=== PATIENT | male | born 1970 | race Caucasian/White ===

== ENCOUNTER → 2020-08-08 13:53 | Outpatient (CLI) | payer BC, SELFPAY ==
--- NOTE | ~2020-08-08 | US_ITS ---
EXAMINATION: US soft tissue head and neck DATE: 08/08/2020 14:21 INDICATION: Localized enlarged lymph nodes. TECHNIQUE: Multiple grayscale and Doppler ultrasound images of the neck submandibular region were obt ained. COMPARISON: None FINDINGS: There are normal submandibular lymph nodes in the patient's area of concern. IMPRESSION: 1. No abnormal neck mass or lymphadenopathy in the patient's area of concern. Reviewed, dictated and finalized at location A.
== END ==
PROVIDERS: PCP Family Medicine; Visit Provider Physician Assistant
DX: R59.0 Localized enlarged lymph nodes (principal)
CPT/HCPCS: 76536

== ENCOUNTER 2023-01-29 00:23 | Day surgery (SDC) | payer BC, SELFPAY ==
[2023-01-21 11:20] VITALS: BMI 27.8
--- NOTE | 2023-01-28 13:24 | PM.HPGS ---
History of Present Illness History of Present Illness Consent: Risks, benefits, and alternatives have been discussed and questions answered. Patient agrees to proceed with procedure. Chief complaint: neoplasm screening Narrative: Kerwin Chaves Jr. is a 53 year old male referred for colon cancer screening. Review of Systems Review of Systems: All systems reviewed & are unremarkable except as noted in HPI and below PMFSH Past Medical History Medical History Left hand pain Family History Family History Mother Hypertension Social History Social History Smoking packs per day: 1 Smoking cigarettes per day: 20.0 Years smoked: 10 Smoking pack-years: 10.00 Smoking status: Former smoker Tobacco type: cigarettes Second hand tobacco smoke exposure: No Smoking end date: 04/28/05 Alcohol intake: current Drinks per week: 10 Substance use: never Substance use type: does not use Living arrangements: with family Occupation/Education: occupation Gender identity (if verbalized by the patient): Male Spiritual care concerns: No Meds Home Medications and Allergies Home Medications Medication Instructions Recorded Confirmed Type fexofenadine 180 mg tablet 180 mg PO DAILY 01/21/23 01/21/23 History ibuprofen 400 mg tablet 400 mg PO Q6H PRN Pain 01/21/23 01/21/23 History Allergies Allergy/AdvReac Type Severity Reaction Status Date / Time No Known Allergies Allergy Verified 01/29/23 08:10 Exam Resp: Auscultation: clear to auscultation bilaterally Cardio: Rate: regular rate Rhythm: regular rhythm GI: GI Palp: Yes Soft to palpation and No Tenderness to palpation present (GI) Assessment and Plan Assessment and plan (1) Colon cancer screening: Code(s): Z12.11 - Encounter for screening for malignant neoplasm of colon Status: Acute Assessment and Plan: Colonoscopy with possible biopsy or polypectomy or cautery or injection of substances.
[2023-01-29 08:11] VITALS: BP 129/77; PULSE 71; RESP 20; TEMP 36.2; O2SAT 97
[2023-01-29] MEDS: LACTATED RINGERS 1,000 ML 150 ML IV CONT (08:21)
--- NOTE | 2023-01-29 08:59 | P.PNAN_ITS ---
Anes - Initial Pre Proc Eval Procedure: Operation Date: 01/29/23 09:30 Proposed Procedures p Screening Colonoscopy - Elias Rain MD Date/Time: 01/29/23 08:59 Surgeon: Elias Rain MD Pre Op Diagnosis: neoplasm screening Patient Data Age: 53 Gender: M Height: 1.83 m Weight: 94.5 kg Last Vital Signs Temp 97.2 F L 01/29/23 08:11 Pulse 71 01/29/23 08:11 Resp 20 01/29/23 08:11 BP 129/77 01/29/23 08:11 Pulse Ox 97 01/29/23 08:11 O2 Del Method Room Air 01/29/23 08:11 Allergies Allergy/AdvReac Type Severity Reaction Status Date / Time No Known Allergies Allergy Verified 01/29/23 08:10 Home Medications Medication Instructions Recorded Confirmed Type fexofenadine 180 mg tablet 180 mg PO DAILY 01/21/23 01/21/23 History ibuprofen 400 mg tablet 400 mg PO Q6H PRN Pain 01/21/23 01/21/23 History Patient hx anesthesia problems: none Family hx anesthesia problems: none Results Review: All pre-operative results and documents have been reviewed as part of the pre- operative evaluation. [facility] Past Medical History Medical History Left hand pain Family History Family History Mother Hypertension Social History Social History Smoking packs per day: 1 Smoking cigarettes per day: 20.0 Years smoked: 10 Smoking pack-years: 10.00 Smoking status: Former smoker Tobacco type: cigarettes Second hand tobacco smoke exposure: No Smoking end date: 04/28/05 Alcohol intake: current Drinks per week: 10 Substance use: never Substance use type: does not use Living arrangements: with family Occupation/Education: occupation Gender identity (if verbalized by the patient): Male Spiritual care concerns: No Anes - Eval Final PreProcedure Day of Procedure 01/29/23 08:59 Patient weight: normal Heart: regular rate and rhythm Lungs: clear to auscultation Airway: Mallampati scale class II Neurological: alert and oriented Last oral intake: >/= 8 hours ASA classification: II Emergent: no Anesthetic plan: proceed Anesthesia type and monitoring: general GIVS and standard monitoring Results Review: All pre-operative results and documents have been reviewed as part of the pre- operative evaluation. Informed Consent: The patient's anesthetic plan and its attendant risks and benefits were discussed with the patient/family/POA. Questions were solicited and answers provided to the satisfaction of the patient/family/POA.
[2023-01-29 09:34] VITALS: BP 112/73; PULSE 60; RESP 20; O2SAT 98
[2023-01-29 09:44] VITALS: BP 119/75; PULSE 60; RESP 20; O2SAT 100
[2023-01-29 09:54] VITALS: BP 118/78; PULSE 63; RESP 20; O2SAT 100
== END 2023-01-29 10:00 | disposition home or self-care (01) ==
PROVIDERS: PCP Family Medicine; Visit Provider Internal Medicine Gastroenterology
PROC: 0DJD8ZZ Inspection of Lower Intestinal Tract, Via Natural or Artificial Opening Endoscopic (ICD-10-PCS; CPT 45378; principal; 2023-01-29 09:30)
DX: Z12.11 Encounter for screening for malignant neoplasm of colon (principal); Z87.891 Personal history of nicotine dependence
CPT/HCPCS: 45378; J2704; J7120

== ENCOUNTER 2024-01-19 14:38 | Outpatient (CLI) | payer BC, SELFPAY ==
--- NOTE | ~2024-01-19 | XR_ITS ---
XR elbow LT min 3V Ordering provider: Patti Moreno PA-C History: . M25.522 - Pain in left elbow . Comparison: None. FINDINGS: BONES: No acute fracture or dislocation. JOINT SPACES: Normal. SOFT TISSUES: Normal. No definite joint effusion. IMPRESSION: No acute osseous abnormality left elbow. Reviewed, dictated and finalized at location A.
== END 2024-01-19 14:39 | disposition home or self-care (01) ==
LOC: MICIMG 14:39
PROVIDERS: PCP Family Medicine; Visit Provider Physician Assistant Medical
DX: M25.522 Pain in left elbow (principal)
CPT/HCPCS: 73080

== ENCOUNTER 2024-09-09 16:25 | Emergency (ER) | payer BC, SELFPAY ==
--- NOTE | ~2024-09-09 | CT_ITS ---
CTA brain carotid Ordering provider: Penelope Reynoso History: . new dysarthria, ataxia x1 day . Comparison: None. Technique: CT angiogram head and neck was performed following timed intravenous injection of contrast . Thin slice axial images and reformatted coronal images were obtained. Three dimensional reformatted images of the brain were also obtained using a [employer] workstation. Radiation reduction technique ut ilized.The dose-length product was 1929.74 mGy-cm. 100 mL Omnipaque 350 was given IV. FINDINGS: HEAD: --ANTERIOR AND MIDDLE CEREBRAL ARTERIES AND BRANCHES: Normal caliber and contour. --INTERNAL CAROTID ARTERIES: Mild atheromatous disease but no significant stenosis. No occlusion. --BASILAR ARTERY AND BRANCHES: Normal caliber and contour. No atheromatous disease. --POSTERIOR CEREBRAL ARTERIES: Normal caliber and contour --POSTERIOR COMMUNICATING ARTERIES: Not visualized which is probably related to congenital absence or small size. --ANEURYSM: None visualized. --BRAIN: Normal. --BONES AND SUPERFICIAL SOFT TISSUES: Normal. --PARANASAL SINUSES AND MASTOIDS: Normal. NECK: --RIGHT CERVICAL CAROTID SYSTEM: Normal caliber and contour. Percent stenosis per NASCET criteria is 0%. No carotid dissection. Otherwise, no significant atheromatous disease or stenosis of the cervica l carotid system. --LEFT CERVICAL CAROTID SYSTEM: Normal caliber and contour. Percent stenosis per NASCET criteria is 0%. No carotid dissection. Otherwise, no significant atheromatous disease or stenosis of the cervical carotid system. --VERTEBRAL ARTERIES: Normal caliber and contour. --VISUALIZED AORTIC ARCH AND BRANCHING VESSELS: Normal caliber and contour. No significant atheromato us disease. --SOFT TISSUES: Normal. --CERVICAL SPINE: Age appropriate degenerative changes. The jugular veins are not opacified with small caliber. IMPRESSION: 1. Normal CTA head and neck. Percent stenosis per NASCET criteria is 0%. Reviewed, dictated and finalized at location A.
[2024-09-09 16:28] VITALS: BP 124/81; PULSE 67; RESP 17; TEMP 36.6; O2SAT 99
--- OUTSIDE RECORDS SUMMARY | 2024-09-09 16:28 | XMS_ITS | Continuity of Care Document ---
Author Name [facility] Organization [facility] Care Team Providers Care Neurology Physician Assistant Name Role Phone [facility] Unavailable Unavailable Problems Combined list of problems from Department of Defense and Veterans Affairs facilities. It does not include entries that were removed or entered in error. Problem Status Onset Date Problem Type Date of Resolution Comments Source Tinnitus, bilateral Inactive 02/04/2022 Condition DoD ASSESSMENT, POST-DEPLOYMENT, DOCUMENTED ON [id number] Active 07/06/2018 Condition DoD Tinea pedis Inactive 06/14/2018 Condition DoD Low back pain Active 09/02/2016 Condition DoD Segmental and somatic dysfunction of pelvic region Active 09/02/2016 Condition DoD Segmental and somatic dysfunction of lumbar region Active 09/02/2016 Condition DoD Segmental and somatic dysfunction of thoracic region Active 09/02/2016 Condition DoD Segmental and somatic dysfunction of cervical region Active 09/02/2016 Condition DoD Myalgia Active 09/02/2016 Condition [facility] ASSESSMENT, PRE-DEPLOYMENT, DOCUMENTED ON SQ4523 Inactive 08/13/2016 Condition [facility] visit for: services physical Inactive 09/15/2009 Condition DoD ASTIGMATISM Active Condition DoD REFRACTIVE ERROR - HYPERMETROPIA Active Condition DoD Allergies, Adverse Reactions, Alerts Combined list of allergies from Department of Defense and Veterans Affairs facilities. It does not include entries that were removed or entered in error. Substance Category Reaction Severity Reaction type Status Date Reported Comments Source No Known Allergies Drug allergy (disorder) active 09/17/2007 Jan Chauhan [facility] Immunizations Combined list of available immunizations from the Department of Defense and Veterans Affairs facilities. Immunization Series Date Given Administered By Site Reaction Lot Number CVX Code Drug Hvac Technician Residential Status Comments Source typhoid Vi capsular polysaccharid e vac 2021 [id number] sanofi pasteur [facility] ed typhoid Vi capsular polysacch aride vac 07/01/21 Given Ambulat ory Pharmac y anthrax vaccine 2021 [id number] 24 [employer] [facility] ed anthrax vaccine 07/01/21 Given Ambulat ory Pharmac y influenza, injectable, quadrivalent- pf 2020 [id number] 150 sanofi pasteur complet ed influenza , injectabl e, quadrival ent-pf 04/01/21 Given Ambulat ory Pharmac y influenza, injectable, quadrivalent- pf 2020 [id number] 150 sanofi pasteur complet ed influenza , injectabl e, quadrival ent-pf 03/03/21 Given Ambulat ory Pharmac y COVID Vaccine Moderna 2020 [id number] complet ed COVID Vaccine Moderna 08/16/20 Given Ambulat ory Pharmac y COVID Vaccine Moderna 2020 [id number] 207 complet ed COVID Vaccine Moderna 07/19/20 Given Ambulat ory Pharmac y influenza virus vaccine, unspecified 2019 [id number] 88 sanofi pasteur complet ed influenza virus vaccine, unspecifi ed 01/18/20 Given Ambulat ory Pharmac y influenza, injectable, quadrivalent- pf 2018 [id number] 150 Se[employer] complet ed influenza , injectabl e, quadrival ent-pf 02/28/19 Given Ambulat ory Pharmac y anthrax vaccine 2018 [id number] 24 [employer] complet ed anthrax vaccine 07/06/18 Given Ambulat ory Pharmac y typhoid Vi capsular polysaccharid e vac 2018 [id number] 101 sanofi pasteur complet ed typhoid Vi capsular polysacch aride vac 07/06/18 Given Ambulat ory Pharmac y influenza, injectable, quadrivalent 2017 [id number] 158 [employer] complet ed influenza , injectabl e, quadrival ent 02/28/18 Given Ambulat ory Pharmac y anthrax vaccine 2017 [id number] 24 [employer] complet ed anthrax vaccine 11/29/17 Given Ambulat ory Pharmac y poliovirus vaccine, inactivated 2017 [id number] 10 sanofi pasteur complet ed polioviru s vaccine, inactivat ed 11/29/17 Given Ambulat ory Pharmac y Influenza, inj, MDCK, quadrivalent- pf 2016 [id number] 171 [employer] complet ed Influenza , inj, MDCK, quadrival ent-pf 02/02/17 Given Ambulat ory Pharmac y typhoid Vi capsular polysaccharid e vac 2016 [id number] 101 sanofi pasteur complet ed typhoid Vi capsular polysacch aride vac 06/01/16 Given Ambulat ory Pharmac y typhoid Vi capsular polysaccharid e vaccine 8 2016 M1287 101 Sanofi Pasteur ([facility]) complet ed typhoid Vi capsular polysacch aride vaccine DoD anthrax vaccine 2015 [id number] 24 [employer] complet ed anthrax vaccine 03/02/16 Given Ambulat ory Pharmac y anthrax vaccine 3 2015 [id number] 24 [employer] Jennifer (MIP) complet ed anthrax vaccine DoD influenza, injectable, quadrivalent- pf 2015 [id number] 150 GlaxoSmithKli ne complet ed influenza , injectabl e, quadrival ent-pf 01/27/16 Given Ambulat ory Pharmac y Influenza, injectable, quadrivalent, preservative free 19 2015 [id number] 150 SmithKline (SKB) complet ed Influenza , injectabl e, quadrival ent, preservat drake free DoD influenza virus vaccine, unspecified 2014 [id number] 88 complet ed influenza virus vaccine, unspecifi ed 03/31/15 Given Ambulat ory Pharmac y influenza virus vaccine, unspecified formulation 1 2014 88 Transcribed (TRS) complet ed influenza virus vaccine, unspecifi ed formulati on DoD hepatitis B adult vaccine 2014 [id number] 43 GlaxoSmithKli ne complet ed hepatitis B adult vaccine 07/01/14 Given Ambulat ory Pharmac y anthrax vaccine 2014 [id number] 24 [employer] complet ed anthrax vaccine 07/01/14 Given Ambulat ory Pharmac y anthrax vaccine 2 2014 [id number] 24 [employer] Ipava (MIP) complet ed anthrax vaccine DoD hepatitis B vaccine, adult dosage 3 2014 [id number] 43 SmithKline (SKB) complet ed hepatitis B vaccine, adult dosage DoD anthrax vaccine 2014 [id number] 24 [employer] complet ed anthrax vaccine 05/06/14 Given Ambulat ory Pharmac y anthrax vaccine 1 2014 [id number] 24 [employer] Ipava (MIP) complet ed anthrax vaccine DoD typhoid Vi capsular polysaccharid e vac 2013 [id number] 101 sanofi pasteur complet ed typhoid Vi capsular polysacch aride vac 04/02/14 Given Ambulat ory Pharmac y typhoid Vi capsular polysaccharid e vaccine 7 2013 [id number] 101 Sanofi Pasteur (PMC) complet ed typhoid Vi capsular polysacch aride vaccine DoD influenza, injectable, quadrivalent 2013 [id number] [employer] comple t ed influenza , injectabl e, quadrival ent 02/26/14 Given Ambulat ory Pharmac y influenza, injectable, quadrivalent, contains preservative 17 2013 [id number] (IDB) complet ed influenza , injectabl e, quadrival ent, contains preservat drake DoD varicella virus vaccine 2013 TRANSCR IBED 21 complet ed varicella virus vaccine 02/24/14 Given Ambulat ory Pharmac y varicella virus vaccine 1 2013 21 Transcribed (TRS) complet ed varicella virus vaccine DoD hepatitis B adult vaccine 2013 [id number] 43 Merck & Company Inc complet ed hepatitis B adult vaccine 01/02/14 Given Ambulat ory Pharmac y hepatitis B vaccine, adult dosage 2 2013 [id number] 43 Merck (MSD) complet ed hepatitis B vaccine, adult dosage DoD hepatitis B adult vaccine 2013 [id number] 43 Merck & Company Inc complet ed hepatitis B adult vaccine 10/02/13 Given Ambulat ory Pharmac y hepatitis B vaccine, adult dosage 1 2013 [id number] 43 Merck (MSD) complet ed hepatitis B vaccine, adult dosage DoD measles/mumps /rubella virus vaccine 2013 [id number] 03 Merck & Company Inc complet ed measles/m umps/rube lla virus vaccine 06/26/13 Given Ambulat ory Pharmac y measles, mumps and rubella virus vaccine 2 2013 [id number] 03 Merck (MSD) complet ed measles, mumps and rubella virus vaccine DoD influenza, live, intranasal,qu adrivalent 2012 [id number] 149 Medimmune Inc comple t ed influenza , live, intranasa l,quadriv alent 02/27/13 Given Ambulat ory Pharmac y influenza, live, intranasal, quadrivalent 1 2012 [id number] 149 [employer] Inc. (MED) complet ed influenza , live, intranasa l, quadrival ent DoD influenza virus vaccine, live 2011 [id number] 111 Medimmune Inc comple t ed influenza virus vaccine, live 02/15/12 Given Ambulat ory Pharmac y influenza virus vaccine, live, attenuated, for intranasal use 1 2011 [id number] 111 MedImmune, Inc. (MED) complet ed influenza virus vaccine, live, attenuate d, for intranasa l use DoD tetanus, diphtheria, acellular pertu is 2011 [id number] 115 sanofi pasteur complet ed tetanus, diphtheri a, acellular pertussis 11/30/11 Given Ambulat ory Pharmac y tetanus toxoid, reduced diphtheria toxoid, and acellular pertu is vaccine, adsorbed 1 2011 [id number] 115 Sanofi Pasteur ([facility]) complet ed tetanus toxoid, reduced diphtheri a toxoid, and acellular pertussis vaccine, adsorbed DoD influenza virus vaccine, live 2010 [id number] [facility] influenza virus vaccine, live 01/27/11 Given Ambulat ory Pharmac y influenza virus vaccine, live, attenuated, for intranasal use 14 2010 [id number] 111 [employer] Inc. (MED) complet ed influenza virus vaccine, live, attenuate d, for intranasa l use DoD influenza virus vaccine, live 2009 [id number] 111 Medimmune Inc comple t ed influenza virus vaccine, live 03/03/10 Given Ambulat ory Pharmac y influenza virus vaccine, live, attenuated, for intranasal use 1 2009 [id number] 111 [facility] ed influenza virus vaccine, live, attenuate d, for intranasa l use [facility] tuberculin purified protein derivative 2009 [id number] 96 sanofi pasteur complet ed tuberculi n purified protein derivativ e 09/29/09 Given Ambulat ory Pharmac y Novel influenza-H1N 1-09,pf,injec table 2009 [id number] 126 sanofi pasteur complet ed Novel influenza -E5K2-33, pf,inject able 06/03/09 Given Ambulat ory Pharmac y Novel influenza-H1N 1-09, preservative- free, injectable 1 2009 [id number] 126 Sanofi Pasteur ([facility]) complet ed Novel influenza -Z6L7-42, preservat drake-free, injectabl e DoD influenza virus vaccine, live 2008 [id number] 111 [employer] comple t ed influenza virus vaccine, live 04/02/09 Given Ambulat ory Pharmac y influenza virus vaccine, live, attenuated, for intranasal use 1 2008 [id number] 111 [employer] Inc. (MED) complet ed influenza virus vaccine, live, attenuate d, for intranasa l use DoD influenza virus vaccine, live 2007 [id number] 111 [facility] t ed influenza virus vaccine, live 02/28/08 Given Ambulat ory Pharmac y typhoid Vi capsular polysaccharid e vac 2007 [id number] 101 sanofi pasteur complet ed typhoid Vi capsular polysacch aride vac 02/28/08 Given Ambulat ory Pharmac y typhoid Vi capsular polysaccharid e vaccine 1 2007 [id number] 101 Sanofi Pasteur ([facility]) complet ed typhoid Vi capsular polysacch aride vaccine DoD influenza virus vaccine, live, attenuated, for intranasal use 1 2007 [id number] 111 [employer] (MED) complet ed influenza virus vaccine, live, attenuate d, for intranasa l use [facility] influenza virus vaccine, live 2006 [id number] 111 [facility] t ed influenza virus vaccine, live 04/05/07 Given Ambulat ory Pharmac y influenza virus vaccine, live, attenuated, for intranasal use 1 2006 [id number] 111 [employer] (MED) complet ed influenza virus vaccine, live, attenuate d, for intranasa l use [facility] influenza virus vaccine,split 2005 [id number] 15 sanofi pasteur complet ed influenza virus vaccine,s plit 04/07/06 Given Ambulat ory Pharmac y influenza virus vaccine, split virus (incl. purified surface antigen)-reti red CODE 1 2005 [id number] 15 Sanofi Pasteur ([facility]) complet ed influenza virus vaccine, split virus (incl. purified surface antigen)- retired CODE [facility] typhoid vaccine, inactivated 2005 [id number] 101 sanofi pasteur complet ed typhoid vaccine, inactivat ed 02/16/06 Given Ambulat ory Pharmac y varicella virus vaccine 0 2005 21 () Not Given varicella virus vaccine [facility] typhoid vaccine, parenteral, other than acetone-kille d, dried 1 2005 N9047-5 41 Sanofi Pasteur ([facility]) complet ed typhoid vaccine, parentera l, other than acetone-k illed, dried DoD influenza virus vaccine,split 2004 [id number] 15 sanofi pasteur complet ed influenza virus vaccine,s plit 04/06/05 Given Ambulat ory Pharmac y influenza virus vaccine, split virus (incl. purified surface antigen)-reti red CODE 1 2004 [id number] 15 Sanofi Pasteur ([facility]) complet ed influenza virus vaccine, split virus (incl. purified surface antigen)- retired CODE [facility] tetanus-dipht h toxoids (Td) adult/adol 2004 [id number] 09 sanofi pasteur complet ed tetanus-d iphth toxoids (Td) adult/ado l 09/15/04 Given Ambulat ory Pharmac y tetanus and diphtheria toxoids, adsorbed, preservative free, for adult use (2 Lf of tetanus toxoid and 2 Lf of diphtheria toxoid) 1 2004 [id number] 09 Sanofi Pasteur ([facility]) complet ed tetanus and diphtheri a toxoids, adsorbed, preservat drake free, for adult use (2 Lf of tetanus toxoid and 2 Lf of diphtheri a toxoid) [facility] influenza virus vaccine,split 2004 [id number] 15 sanofi pasteur complet ed influenza virus vaccine,s plit 06/23/04 Given Ambulat ory Pharmac y influenza virus vaccine, split virus (incl. purified surface antigen)-reti red CODE 0 2004 [id number] 15 Sanofi Pasteur ([facility]) complet ed influenza virus vaccine, split virus (incl. purified surface antigen)- retired CODE [facility] typhoid vaccine, inactivated 2003 [id number] 101 sanofi pasteur complet ed typhoid vaccine, inactivat ed 02/18/04 Given Ambulat ory Pharmac y typhoid vaccine, parenteral, other than acetone-kille d, dried 0 2003 [id number] 41 Sanofi Pasteur ([facility]) complet ed typhoid vaccine, parentera l, other than acetone-k illed, dried [facility] influenza virus vaccine, whole virus 2002 [id number] 16 [facility] complet ed influenza virus vaccine, whole virus 03/11/03 Given Ambulat ory Pharmac y influenza virus vaccine, whole virus 0 2002 [id number] 16 [employer] ([employer]) complet ed influenza virus vaccine, whole virus DoD tuberculin purified protein derivative 2002 [id number] 96 sanofi pasteur complet ed tuberculi n purified protein derivativ e 05/08/02 Given Ambulat ory Pharmac y typhoid vaccine, inactivated 2001 [id number] 101 sanofi pasteur complet ed typhoid vaccine, inactivat ed 03/03/02 Given Ambulat ory Pharmac y typhoid vaccine, parenteral, other than acetone-kille d, dried 0 2001 [id number] 41 Sanofi Pasteur ([facility]) complet ed typhoid vaccine, parentera l, other than acetone-k illed, dried DoD influenza virus vaccine, whole virus 2001 [id number] 16 sanofi pasteur complet ed influenza virus vaccine, whole virus 02/13/02 Given Ambulat ory Pharmac y influenza virus vaccine, whole virus 0 2001 [id number] 16 Sanofi Pasteur ([facility]) complet ed influenza virus vaccine, whole virus DoD tuberculin purified protein derivative 2001 [id number] 96 sanofi pasteur complet ed tuberculi n purified protein derivativ e 05/09/01 Given Ambulat ory Pharmac y influenza virus vaccine, whole virus 2000 [id number] 16 sanofi pasteur complet ed influenza virus vaccine, whole virus 04/04/01 Given Ambulat ory Pharmac y influenza virus vaccine, whole virus 0 2000 [id number] 16 Sanofi Pasteur ([facility]) complet ed influenza virus vaccine, whole virus DoD tuberculin purified protein derivative 1999 [id number] 96 [facility] complet ed tuberculi n purified protein derivativ e 04/05/00 Given Ambulat ory Pharmac y influenza virus vaccine, whole virus 1999 [id number] 16 [facility] complet ed influenza virus vaccine, whole virus 04/05/00 Given Ambulat ory Pharmac y influenza virus vaccine, whole virus 0 1999 [id number] 16 [facility] ([facility]) complet ed influenza virus vaccine, whole virus DoD yellow fever vaccine 1999 [id number] 37 sanofi pasteur complet ed yellow fever vaccine 10/06/99 Given Ambulat ory Pharmac y yellow fever vaccine 0 1999 [id number] 37 Sanofi Pasteur ([facility]) complet ed yellow fever vaccine DoD typhoid, parenteral, AKD 1998 53 complet ed typhoid, parentera l, AKD 04/16/99 Given Ambulat ory Pharmac y typhoid vaccine, parenteral, acetone-kille d, dried ([place] ) 2 1998 53 () complet ed typhoid vaccine, parentera l, acetone-k illed, dried ([place] ) DoD typhoid, parenteral, AKD [id number] 53 [facility] complet ed typhoid, parentera l, AKD 04/08/99 Given Ambulat ory Pharmac y typhoid vaccine, parenteral, acetone-kille d, dried ([place] ) 1 [id number] 53 [facility] ([facility]) complet ed typhoid vaccine, parentera l, acetone-k illed, dried ([place] ) DoD influenza virus vaccine, whole virus 1998 [id number] 16 [facility] complet ed influenza virus vaccine, whole virus 01/14/99 Given Ambulat ory Pharmac y influenza virus vaccine, whole virus 0 1998 [id number] 16 [facility] ([facility] complet ed influenza virus vaccine, whole virus DoD influenza virus vaccine, whole virus 19981178 [id number] 0 16 [facility] complet ed influenza virus vaccine, whole virus 09/19/98 Given Ambulat ory Pharmac y influenza virus vaccine, whole virus 0 [id number] 16 [facility] ([facility]) complet ed influenza virus vaccine, whole virus DoD hepatitis A adult vaccine 1997 52 complet ed hepatitis A adult vaccine 05/18/97 Given Ambulat ory Pharmac y hepatitis A vaccine, adult dosage 2 1997 52 () complet ed hepatitis A vaccine, adult dosage DoD hepatitis A adult vaccine 1996 52 complet ed hepatitis A adult vaccine 11/11/96 Given Ambulat ory Pharmac y hepatitis A vaccine, adult dosage 1 1996 52 () complet ed hepatitis A vaccine, adult dosage DoD tetanus-dipht h toxoids (Td) adult/adol 1994 09 complet ed tetanus-d [facility] toxoids (Td) adult/ado l 09/19/94 Given Ambulat ory Pharmac y tetanus and diphtheria toxoids, adsorbed, preservative free, for adult use (2 Lf of tetanus toxoid and 2 Lf of diphtheria toxoid) 0 1994 09 () complet ed tetanus and diphtheri a toxoids, adsorbed, preservat drake free, for adult use (2 Lf of tetanus toxoid and 2 Lf of diphtheri a toxoid) DoD yellow fever vaccine 1989 37 complet ed yellow fever vaccine 09/19/89 Given Ambulat ory Pharmac y yellow fever vaccine 0 1989 37 () complet ed yellow fever vaccine DoD measles/mumps /rubella virus vaccine 1989 03 complet ed measles/m umps/rube lla virus vaccine 08/20/89 Given Ambulat ory Pharmac y meningococcal polysaccharid e (MPSV4) 1989 32 complet ed meningoco ccal polysacch aride (MPSV4) 08/20/89 Given Ambulat ory Pharmac y poliovirus vaccine, live, oral 1989 02 complet ed polioviru s vaccine, live, oral 08/20/89 Given Ambulat ory Pharmac y trivalent poliovirus vaccine, live, oral 0 1989 02 () complet ed trivalent polioviru s vaccine, live, oral DoD measles, mumps and rubella virus vaccine 0 1989 03 () complet ed measles, mumps and rubella virus vaccine DoD meningococcal polysaccharid e vaccine (MPSV4) 0 1989 32 () complet ed meningoco ccal polysacch aride vaccine (MPSV4) DoD Results Combined list of recent chemistry, hematology and other laboratory results from Department of Defense and Veterans Affairs, ranging from 15 months to all on record, depending upon the facility. Order Name Results Value Reference Range Date Interpretation Specimen Comments Source Infectiou s Disease HIV-1/O/2 Non-Reac tive 1 (11/05/23 2:41 PM) 11/04 N Interpretiv e Data: INTERPRETAT ION: This method is a screening procedure for the detection of HIV p24 Antigen and Antibodies to HIV-1, including Group O, and/or HIV-2. NON-REACTIV E: HIV-1 antigen and HIV-1 / HIV-2 antibodies were not detected. No laboratory evidence of HIV infection. A negative test result does not exclude the possibility of exposure to or infection with HIV. HIV antibodies and/or p24 antigen may be undetectabl e in some stages of the infection and in some clinical conditions. If acute HIV infection is suspected, consider submitting another specimen to a reference laboratory for HIV-1 RNA. SCREEN REACTIVE - CONFIRMATIO N TO FOLLOW: Possible presence of HIV-1antibo dies, HIV-2 antibodies and/or HIV-1 p24 antigen. Specimen will reflex to the confirmatio n testing that fulfills the Center for Disease Control and Prevention' s HIV diagnostic algorithm. Refer to [facility] Lab Guide for additional information : [email or web address] x Testing performed by Jennifer jackson [id number] [facility] Miscellan eous Sendouts Repository Sample Received (11/05/23 2:41 PM) 11/04 N [id number] [facility] Encounters Combined list of: 1) Encounters from Department of Veterans Affairs facilities going backup to the last 18 months, not all VA inpatient encounters are included; 2) Encounters from the Department of Defense facilities going backup to 280 months. Location Location Details Encounter Type Encounter Number Reason For Visit Attending Provider ADM Date DC Date Status Disposition Source [employer]([facility]) OUTPATIENT [id number] rte CAMILA ELIZABETH 09/15 Released w/o Limitations [employer](O ptometr y) Theater Facility OUTPATIENT [id number] Theater Provider 08/04 Released w/o Limitations [facility] [place] OUTPATIENT [id number] lower back pain pat back from deploym ent [phone] TL ROSENBERG 08/15 Released w/o Limitations [employer] [place] [facility] [place] [facility] Theater Facility OUTPATIENT [id number] Theater Provider 08/13 Released w/o Limitations Theater Facilit y [employer] [place] DICKEY [place]War rior Op Med Cln Tm A Ad) OUTPATIENT [id number] Low Back pain persist ent [id number] LUCIEN CRAWLEY 08/29 Released w/o Limitations [employer] [place]W arrior Op Med Cln Tm A Ad) [employer] [place]Chi ropractic ) OUTPATIENT [id number] Low back pain RO CAI R 09/02 Released w/o Limitations [employer] [place]C hiropra ctic) [employer] [place]Chi [facility]practic ) OUTPATIENT [id number] f/u low back RO CAI R 09/06 Released w/o Limitations [employer] ([facility]C hiropra ctic) [employer] [place]Chi [facility]practic ) OUTPATIENT [id number] back pain RO CAI R 09/13 Released w/o Limitations [employer] [place]C hiropra ctic) [employer] [place]Chi ropractic ) OUTPATIENT [id number] back pain RO CAI R 09/18 Released w/o Limitations [employer] ([facility]C hiropra ctic) [employer] ([facility]Chi ropractic ) OUTPATIENT [id number] back pain RO CAI R 09/25 Released w/o Limitations [employer] ([facility]C hiropra ctic) [employer] [place] [place]Chi [place]practic ) OUTPATIENT [id number] low back / RO CAI R 10/02 Released w/o Limitations [employer] ([facility] hiropra [place]tic) [employer] ([facility] [place]Chi ropractic ) OUTPATIENT [id number] back pai9n RO CAI R 10/14 Released w/o Limitations [employer] ([facility] [place]C hiropra ctic) [employer] ([facility] [place]Chi [place]practic ) OUTPATIENT [id number] back pain RO CAI R 11/11 Released w/o Limitations [address] [place] [address] [employer] ([facility] [address] [place] [address] [employer] ([facility] [place]Chi [place]practic ) OUTPATIENT [id number] back pain RO CAI R 11/28 Released w/o Limitations [address] [place] [address] [employer] ([facility] [address] [place] [address] [employer] [facility] [facility]) OUTPATIENT [id number] [employer] 11/30 Released w/o Limitations [address] [place] [address] [employer] ([facility]O ldclini rudy) [id number]|2024-09-09 19:23:59|2024-09-09 19:23:59|PC.NURSE||||"Assumed care of patient at 1915."
--- OUTSIDE RECORDS SUMMARY | 2024-09-09 16:28 | XMS_ITS | Clinical Summary ---
Author Organization [facility] Address [address] [place] [address] Care Team Providers Care Tipple Operator Name Role Phone Noel Jacob MD Primary Care Provider [phone] Source Comments [facility],non-owned Affiliates and Associated Physician Practices is amultiple site organization consisting of ambulatory clinics and hospital sitesin [place], [place], [place] and [place]. This disclosure is being madepursuant to the Care Everywhere program and may not contain all information available regarding this patient. Last updated 18.[facility] Allergies No known active allergies Medications * Be aware that medications may not be up to date on this document. Alwaysverify current medications with the patient. No known medications Family History Medical History Relation Name Comments Asthma Neg Hx Autoimmune Disease Neg Hx Bipolar Disorder Neg Hx Cancer - Breast Neg Hx Cancer - Colon Neg Hx Cancer - Other Neg Hx Cancer - Ovarian Neg Hx Cancer - Pancreatic Neg Hx Cancer - Prostate Neg Hx Depression Neg Hx Eczema Neg Hx Hypertension Neg Hx Migraine Neg Hx Osteoporosis Neg Hx Seizures Neg Hx Sudd. <30 Neg Hx Thyroid Disease Neg Hx Ulcerative Colitis Neg Hx Relation Name Status Comments Father Alive Mother Alive Social History Tobacco Use Types Packs/Day Years Used Date Smoking Tobacco: Never Smokeless Tobacco: Never Tobacco Cessation:Counseling Given: No Alcohol Use Standard Drinks/Week Comments No 0 (1 standard drink = 0.6 oz pur e alcohol) Sex and Gender Information Value Date Recorded Sex Assigned at Not on file Legal Sex Male 1:19 PM RESIDENTIAL MANAGER Gender Identity Not on file Sexual Orientation Not on file Last Filed Vital Signs Vital Sign Reading Time Taken Comments Blood Pressure 124/67 05/02/2017 7:02 PM RESIDENTIAL MANAGER Pulse 78 05/02/2017 7:02 PM RESIDENTIAL MANAGER Temperature 36.8 C (98.2 F) 05/02/2017 7:02 PM RESIDENTIAL MANAGER Respiratory Rate 20 05/02/2017 7:02 PM RESIDENTIAL MANAGER Oxygen Saturation 98% 05/02/2017 7:02 PM RESIDENTIAL MANAGER Inhaled Oxygen Concentration - - Weight 90.7 kg (200 lb) 05/02/2017 7:02 PM RESIDENTIAL MANAGER Height 188 cm (6' 2 ) 05/02/2017 7:02 PM RESIDENTIAL MANAGER Body Mass Index 25.68 05/02/2017 7:02 PM RESIDENTIAL MANAGER Plan of Treatment Health Maintenance Due Date Last Done Comments COLOGUARD (AGES 45-75) - COL ON CA SCREENING 1971 COLON MONITORING 1971 COLONOSCOPY - COLON CA SCREENING 1971 CT COLONOGRAPHY - COLON CA SCREENING 1971 Colorectal Cancer Screening 1971 FIT - COLON CA SCREENING 1971 FLEX SIG - COLON CA SCREENING 1971 LIPID TESTING 1971 HIV SCREENING 1986 HEPATITIS C SCREENING 12/30/1988 DTAP/TDAP/TD VACCINES (1 - Tdap) 1990 HEPATITIS B VACCINE (1 of 3 - 19+ 3-dose series) 1990 SCREENING FOR DIABETES 05/02/2017 PNEUMOCOCCAL VACCINE 50+ (1 of 1 - PCV) 2021 ZOSTER VACCINE (1 of 2) 2021 COVID-19 VACCINE (1 - 2023-2 5 season) 2023 DEPRESSION SCREENING 04/28/2024 INFLUENZA VACCINE (Season Ended) 2024 HIB VACCINE Aged Out No longer eligi ble based on patient's age to complete this topic HPV VACCINE Aged Out No longer eligi ble based on patient's age to complete this topic MENINGOCOCCAL (Group B) VACC INE SHARED DECISION-MAKING Aged Out No longer eligibl e based on patient's age to complete this topic MENINGOCOCCAL GROUPS A/C/Y/W VACCINE Aged Out No longer eligible b ased on patient's age to complete this topic Insurance [facility] Care Teams Tipple Operator Relationship Specialty Start Date End Date Noel Jacob MD [address] [place] [id number] PCP - General Family Medicine 05/02/17
--- NOTE | 2024-09-09 17:18 | ECG_ITS ---
Test Date: 2024-09-09 18:07:18 Measurements Intervals [place] Rate: 66 P: 41 [place]: 136 QRS: 2 QRSD: 92 T: 23 QT: 374 QTc: 394 Interpretive Statements SINUS RHYTHM POSSIBLE LEFT ATRIAL ENLARGEMENT [-0.1mV P-WAVE IN V1/V2] ABNORMAL ECG No previous ECG available for comparison Electronically Signed On 09-10-2024 09:50:33 CDT by Landen Patel M.D.
--- NOTE | 2024-09-09 17:41 | ED_ITS ---
HPI - Neuro Symptoms/Deficit General Chief Complaint: Neuro Symptoms/Deficit Stated Complaint: Sent from PMD for confusion, Vertigo-balance prob Time Seen by Provider: 09/09/24 17:30 History of Present Illness HPI Narrative: Patient is a 54-year-old male presents to the ER with neurological changes. He reports he was camping last weekend in [facility]. Patient reports he returned home and experienced a sinus headache on Friday and Friday. On Friday patient woke up and reports I hurt everywhere. Patient reports he slept most of the day. This morning patient woke up and continued to experience the same symptoms except he reports most of the pain is behind his R eye and he feels pressure in his eye. His reports he was talking like he was drunk. Over the past 2 days patient endorses decreased p.o. intake and decreased hand/eye coordination. He denies any recent rashes, emesis, or recent fevers. Patient denies any medical history relevant to this ER visit. Related Data Home Medications Medication Instructions Recorded Confirmed Last Taken Type fexofenadine 180 mg tablet 180 mg PO DAILY 01/21/23 09/09/24 Unknown History ibuprofen 400 mg tablet 400 mg PO Q6H PRN Pain 01/21/23 09/09/24 Unknown History Allergies Allergy/AdvReac Type Severity Reaction Status Date / Time No Known Allergies Allergy Verified 09/09/24 16:27 Review of Systems 2 Review of Systems: All systems reviewed & are unremarkable except as noted in HPI and below PMFSH Past Medical History Medical History Left hand pain Family History Family History Mother Hypertension Social History Social History Smoking packs per day: 0 Smoking cigarettes per day: 0.0 Years smoked: 10 Smoking pack-years: 0.00 Smoking status: Former smoker Tobacco type: cigarettes Second hand tobacco smoke exposure: No Smoking end date: 04/28/05 Alcohol intake: current Drinks per week: 10 Substance use: never Substance use type: does not use Living arrangements: with family Occupation/Education: occupation Gender identity (if verbalized by the patient): Male Spiritual care concerns: No Exam 2 Narrative: GENERAL: Well appearing, well-nourished, non-toxic, in no acute distress. HEAD: Normocephalic, atraumatic. PERRLA, R eye pressure is 6-7 NECK: Supple. No adenopathy, no masses. RESPIRATORY: Airway patent, respirations nonlabored. Clear to auscultation bilaterally, no rales, rhonchi, wheezing. CARDIOVASCULAR: Regular rate and rhythm without murmurs, rubs, or gallops. Peripheral pulses 2+ and equal bilaterally. ABDOMINAL: Soft, nontender, nondistended, no hepatosplenomegaly. Normoactive BS. MUSCULOSKELETAL: Moves all extremities. Strength/ROM intact without gross deformities. SKIN: Warm, dry, normal color. No rashes. NEURO: A&O X3. Speech clear. Cranial nerves II-XII intact. No ataxic movements. PSYCHIATRIC: Appropriate mood and affect. Normal interaction. Course Vital Signs Vital signs: Vital Signs Temperature 36.6 C 09/09/24 16:28 Pulse Rate 67 09/09/24 16:28 Respiratory Rate 17 09/09/24 16:28 Blood Pressure 124/81 09/09/24 16:28 Pulse Oximetry 99 09/09/24 16:28 Oxygen Delivery Room Air 09/09/24 16:28 Temperature 36.6 C 09/09/24 16:28 Pulse Rate 61 09/09/24 22:35 Respiratory Rate 16 09/09/24 22:35 Blood Pressure 110/95 H 09/09/24 19:24 Pulse Oximetry 97 09/09/24 22:35 Oxygen Delivery Room Air 09/09/24 16:28 MDM - Neuro Symptoms/Deficit MDM Narrative Medical decision making narrative: Patient is a 54-year-old male presents to the ER with neurological changes. He reports he was camping last weekend in [facility]. Patient reports he returned home and experienced a sinus headache on Friday and Friday. On Friday patient woke up and reports I hurt everywhere. Patient reports he slept most of the day. This morning patient woke up and continued to experience the same symptoms except he reports most of the pain is behind his R eye and he feels pressure in his eye. His reports he was talking like he was drunk. Over the past 2 days patient endorses decreased p.o. intake and decreased hand/eye coordination. He denies any recent rashes, emesis, or recent fevers. Patient denies any medical history relevant to this ER visit. Labs Ordered: CBC, CMP, TSH, ethanol, troponin, PTT, INR, COVID/RSV/flu swab Imaging Ordered: CTA brain, chest x-ray Medications Ordered: None necessary Results: CTA brain indicates 1. Normal CTA head and neck. Percent stenosis per NASCET criteria is 0%. Pt's chest x-ray indicates No acute cardiopulmonary pathology. Diagnosis: headache, viral infection, sinus pressure Patient Education/Shared MDM: Results of lab work shared with patient. He endorses improvement of his headache following medication administration. Patient strongly advised to maintain hydration status upon discharge and follow- up with his PCP as soon as possible. He will be discharged home with no new prescriptions. Strict return precautions provided. Patient verbalized understanding and is in agreement with plan. Vital signs stable at time of discharge. All questions answered. Differential Diagnosis Differential diagnosis: Likely subarachnoid hemorrhage, cerebrovascular accident, transient cerebral ischemia and other (Migraine headache, sinus pressure, seasonal allergies) Lab Data Attestation: I reviewed the patient's lab results. 09/09/24 17:55 09/09/24 17:55 Labs: Lab Results 09/09/24 09/09/24 Range/Units 17:55 18:11 WBC 5.1 (4.5-10.0) K/mm3 RBC 4.48 L (4.6-6.20) M/mm3 Hgb 14.3 (14.0-18.0) g/dL Hct 42.9 (42.0-52.0) % MCV 95.8 (80-100) fl MCH 31.9 (26-34) pg MCHC 33.3 (32-36) g/dl RDW 12.6 (11.5-14.5) % Plt Count 217 (150-375) k/mm3 MPV 10.1 (7.4-10.4) fl Immature Gran % (Auto) 0.2 (0-0.5) % Neut % (Auto) 57.6 (45.5-73.1) % Lymph % (Auto) 25.4 (18.3-44.2) % Heard % (Auto) 12.8 H (2.6-8.5) % Eos % (Auto) 3.2 (0-4.4) % Baso % (Auto) 0.8 (0.2-1.2) % Lymph # (Auto) 1.29 (0.9-3.2) K/mm3 Heard # (Auto) 0.7 H (0.1-0.6) K/mm3 Eos # (Auto) 0.2 (0-0.3) K/mm3 Baso # (Auto) 0.0 (0.0-0.1) K/mm3 Abs Immat Gran (auto) 0.01 (0.00-0.031) K/mm3 Absolute Neuts (auto) 2.9 (1.3-6.7) K/mm3 Absolute Nucleated RBC 0.000 (0.0-0.012) K/mm3 Nucleated RBC % 0.0 (0.0-0.2) % PT 12.6 (11.1-14.7) Seconds INR 0.9 APTT 24.2 (22.3-36.8) Seconds Sodium 139 (137-145) mmol/L Potassium 4.8 (3.4-5.0) mmol/L Chloride 106 (98-107) mmol/L Carbon Dioxide 26 (22-30) mmol/L Anion Gap 7 (4-12) mmol/L BUN 8 L (9-20) mg/dL Creatinine 0.74 (0.7-1.3) mg/dL Estim Creat Clear Calc 116 ml/min Estimated GFR > 60 (59 - ) Glucose 109 (65-110) mg/dL POC Capillary Glucose 104 (65-105) mg/dl Calcium 9.0 (8.4-10.2) mg/dL Total Bilirubin 0.3 (0.2-1.3) mg/dL AST 34 (17-59) U/L ALT 32 (6-50) U/L Alkaline Phosphatase 60 (38-126) U/L Troponin I < 0.012 (0.000-0.034) ng/mL Total Protein 8.0 (6.3-8.2) g/dL Albumin 4.3 (3.5-5.1) g/dL TSH (Reflex) 3.360 (0.465-4.68) uIU/mL Ethyl Alcohol < 10 (<10) mg/dL Influenza A (RT-PCR) Negative (Negative) Influenza B (RT-PCR) Negative (Negative) RSV (RT-PCR) Negative (Negative) SARS-CoV-2 RNA (RT-PCR) Negative (Negative) Imaging Data Attestation: I personally reviewed and interpreted this imaging study as follows: Radiologist's impression: Impressions Chest X-Ray 09/09/24 18:01 IMPRESSION: No acute cardiopulmonary pathology. Head/Neck CTA 09/09/24 20:31 IMPRESSION: 1. Normal CTA head and neck. Percent stenosis per NASCET criteria is 0%. Discharge Plan Discharge Clinical Impression: Headache, Sinus pressure, Weakness generalized, Altered behavior Patient Disposition: Home Condition: Stable Instructions: Antibiotic Form Additional Instructions: Please return to the ER with any worsening symptoms. Follow-up with primary care provider as soon as possible. Take all medications as prescribed. You may use Tylenol and/or ibuprofen for pain control. Patient Language: Ukrainian Prescriptions: No Action tolnaftate [Athlete's Foot (tolnaftate)] 1 % aerosol powder 1 spray topical BID Qty: 133 1RF Rx Instructions: Apply to affected and surrounding area(s) twice daily until 1 week after clinical resolution, typically for 4 weeks total fexofenadine 180 mg Tablet 180 mg PO DAILY ibuprofen 400 mg Tablet 400 mg PO Q6H PRN (Reason: Pain) Follow-up/Referrals: Noel Jacob MD [Primary Care Provider] - Time of Disposition: 22:15
--- OUTSIDE RECORDS SUMMARY | 2024-09-09 17:50 | XMS_ITS | Continuity of Care Document ---
Author Name [facility] Organization [facility] Care Team Providers Care Service Order Clerk Name Role Phone [facility] Unavailable Unavailable Problems Combined list of problems from Department of Defense and Veterans Affairs facilities. It does not include entries that were removed or entered in error. Problem Status Onset Date Problem Type Date of Resolution Comments Source Tinnitus, bilateral Inactive 02/04/2022 Condition DoD ASSESSMENT, POST-DEPLOYMENT, DOCUMENTED ON [id number] Active 07/06/2018 Condition DoD Tinea pedis Inactive [...] 09/02/2016 Condition DoD Myalgia Active 09/02/2016 Condition [facility] ASSESSMENT, PRE-DEPLOYMENT, DOCUMENTED ON [id number] Inactive 08/13/2016 Condition [facility] visit for: services physical Inactive 09/15/2009 Condition [...] Drug allergy (disorder) active 09/17/2007 Jan Chauhan [facility] Immunizations Combined list of available immunizations from the Department of Defense and Veterans Affairs facilities. Immunization Series Date Given Administered By Site Reaction Lot Number CVX Code Drug Marketing Operations Assistant Status Comments Source typhoid Vi capsular polysaccharid e vac 2021 [id number] sanofi pasteur [facility] ed typhoid Vi capsular polysacch aride vac 07/01/21 Given Ambulat ory Pharmac y anthrax vaccine 2021 [id number] 24 [employer] [facility] ed anthrax vaccine 07/01/21 Given Ambulat ory Pharmac y influenza, injectable, quadrivalent- pf 2020 [id number] 150 sanofi pasteur complet ed influenza , injectabl e, quadrival ent-pf 04/01/21 Given Ambulat ory Pharmac y influenza, injectable, quadrivalent- pf 2020 [id number] 150 sanofi pasteur complet ed influenza , injectabl e, quadrival ent-pf 03/03/21 Given Ambulat ory Pharmac y COVID Vaccine Moderna 2020 [id number] complet ed COVID Vaccine Moderna 08/16/20 Given Ambulat ory Pharmac y COVID Vaccine Moderna 2020 [id number] 207 complet ed COVID Vaccine Moderna 07/19/20 Given Ambulat ory Pharmac y influenza virus vaccine, unspecified 2019 [id number] 88 sanofi pasteur complet ed influenza virus vaccine, unspecifi ed 01/18/20 Given Ambulat ory Pharmac y influenza, injectable, quadrivalent- pf 2018 [id number] 150 [employer] complet ed influenza , injectabl e, quadrival ent-pf 02/28/19 Given Ambulat ory Pharmac y anthrax vaccine 2018 [id number] 24 [employer] complet ed anthrax vaccine 07/06/18 Given Ambulat ory Pharmac y typhoid Vi capsular polysaccharid e vac 2018 [id number] 101 sanofi pasteur complet ed typhoid Vi capsular polysacch aride vac 07/06/18 Given Ambulat ory Pharmac y influenza, injectable, quadrivalent 2017 [id number] 158 [employer] complet ed influenza , injectabl e, quadrival ent 02/28/18 Given Ambulat ory Pharmac y anthrax vaccine 2017 [id number] 24 [employer] complet ed anthrax vaccine 11/29/17 Given Ambulat ory Pharmac y poliovirus vaccine, inactivated 2017 [id number] 10 sanofi pasteur complet ed polioviru s vaccine, inactivat ed 11/29/17 Given Ambulat ory Pharmac y Influenza, inj, MDCK, quadrivalent- pf 2016 [id number] 171 [employer] complet ed Influenza , inj, MDCK, quadrival ent-pf 02/02/17 Given Ambulat ory Pharmac y typhoid Vi capsular polysaccharid e vac 2016 [id number] 101 sanofi pasteur complet ed typhoid Vi capsular polysacch aride vac 06/01/16 Given Ambulat ory Pharmac y typhoid Vi capsular polysaccharid e vaccine 8 2016 [id number] 101 Sanofi Pasteur ([facility]) complet ed typhoid Vi capsular polysacch aride vaccine DoD anthrax vaccine 2015 [id number] 24 [employer] complet ed anthrax vaccine 03/02/16 Given Ambulat ory Pharmac y anthrax vaccine 3 2015 [id number] 24 [employer] Jennifer (MIP) complet [...] Ambulat ory Pharmac y anthrax vaccine 2014 [id number] 24 [employer] complet ed anthrax vaccine 07/01/14 Given Ambulat ory Pharmac y anthrax vaccine 2 2014 [id number] 24 [employer] Maryneal (MIP) complet ed anthrax vaccine DoD hepatitis B vaccine, adult dosage 3 2014 [id number] 43 SmithKline (SKB) complet ed hepatitis B vaccine, adult dosage DoD anthrax vaccine 2014 [id number] 24 [employer] complet ed anthrax vaccine 05/06/14 Given Ambulat ory Pharmac y anthrax vaccine 1 2014 [id number] 24 [employer] Maryneal (MIP) complet ed anthrax vaccine DoD typhoid [...] vaccine DoD hepatitis B adult vaccine 2013 [id number] 43 Merck & Company Inc complet ed hepatitis B adult vaccine 01/02/14 Given Ambulat ory Pharmac y hepatitis B vaccine, adult dosage 2 2013 [id number] 43 Merck (MSD) complet ed hepatitis B vaccine, adult dosage DoD hepatitis B adult vaccine 2013 [id number] 43 Merck & Company Inc complet ed hepatitis B adult vaccine 10/02/13 Given Ambulat ory Pharmac y hepatitis B vaccine, adult dosage 1 2013 [id number] 43 Merck (MSD) complet ed hepatitis B vaccine, adult dosage DoD measles/mumps /rubella virus vaccine 2013 [id number] 03 Merck & Company Inc complet ed measles/m umps/rube lla virus vaccine 06/26/13 Given Ambulat ory Pharmac y measles, mumps and rubella virus vaccine 2 2013 [id number] 03 Merck (MSD) complet ed measles, mumps and rubella virus vaccine DoD influenza, live, intranasal,qu adrivalent 2012 [id number] 149 Medimmune Inc comple t ed influenza , live, intranasa l,quadriv alent 02/27/13 Given Ambulat ory Pharmac y influenza, live, intranasal, quadrivalent 1 2012 [id number] 149 ncyclo, Inc. (MED) complet ed influenza , live, intranasa l, quadrival ent DoD influenza virus vaccine, live 2011 [id number] 111 Medimmune Inc comple t ed influenza virus vaccine, live 02/15/12 Given Ambulat ory Pharmac y influenza virus vaccine, live, attenuated, for intranasal use 1 2011 [id number] 111 MedImmune, Inc. (MED) complet ed influenza virus vaccine, live, attenuate d, for intranasa l use DoD tetanus, diphtheria, acellular pertu is 2011 [id number] 115 sanofi pasteur complet ed tetanus, diphtheri a, acellular pertussis 11/30/11 Given Ambulat ory Pharmac y tetanus toxoid, reduced diphtheria toxoid, and acellular pertu is vaccine, adsorbed 1 2011 [id number] 115 Sanofi Pasteur ([facility]) complet ed tetanus toxoid, reduced diphtheri a toxoid, and acellular pertussis vaccine, adsorbed DoD influenza virus vaccine, live 2010 [id number] 111 [facility] t ed influenza virus vaccine, live 01/27/11 Given Ambulat ory Pharmac y influenza virus vaccine, live, attenuated, for intranasal use 14 2010 [id number] 111 MedIune, Inc. (MED) complet ed influenza virus vaccine, live, attenuate d, for intranasa l use DoD influenza virus vaccine, live 2009 [id number] 111 Medimmune Inc comple t ed influenza virus vaccine, live 03/03/10 Given Ambulat ory Pharmac y influenza virus vaccine, live, attenuated, for intranasal use 1 2009 [id number] 111 [facility] (MED) complet ed influenza virus vaccine, live, attenuate d, for intranasa l use [facility] tuberculin purified protein derivative 2009 [id number] 96 sanofi pasteur complet ed tuberculi n purified protein derivativ e 09/29/09 Given Ambulat ory Pharmac y Novel influenza-H1N 1-09,pf,injec table 2009 [id number] 126 sanofi pasteur complet ed Novel influenza -Z1O3-46, pf,inject able 06/03/09 Given Ambulat ory Pharmac y Novel influenza-H1N 1-09, preservative- free, injectable 1 2009 [id number] 126 Sanofi Pasteur ([facility]) complet ed Novel influenza -B8P6-03, preservat drake-free, injectabl e DoD influenza virus vaccine, live 2008 [id number] 111 [employer] Inc comple t ed influenza virus vaccine, live 04/02/09 Given Ambulat ory Pharmac y influenza virus vaccine, live, attenuated, for intranasal use 1 2008 [id number] 111 ncyclo, Inc. (MED) complet ed influenza virus vaccine, live, attenuate d, for intranasa l use DoD influenza virus vaccine, live 2007 [id number] 111 [facility] t ed influenza virus vaccine, live 02/28/08 Given Ambulat ory Pharmac y typhoid Vi capsular polysaccharid e vac 2007 [id number] 101 sanofi pasteur complet ed typhoid Vi capsular polysacch aride vac 02/28/08 Given Ambulat ory Pharmac y typhoid Vi capsular polysaccharid e vaccine 1 2007 [id number] 101 Sanofi Pasteur ([facility]) complet ed typhoid Vi capsular polysacch aride vaccine DoD influenza virus vaccine, live, attenuated, for intranasal use 1 2007 [id number] 111 ncyclo, Inc. (MED) complet ed influenza virus vaccine, live, attenuate d, for intranasa l use [facility] influenza virus vaccine, live 2006 [id number] 111 [facility] t ed influenza virus vaccine, live 04/05/07 Given Ambulat ory Pharmac y influenza virus vaccine, live, attenuated, for intranasal use 1 2006 [id number] 111 ncyclo, Inc. (MED) complet ed influenza virus vaccine, live, attenuate d, for intranasa l use [facility] influenza virus vaccine,split 2005 [id number] 15 sanofi pasteur complet ed influenza virus vaccine,s plit 04/07/06 Given Ambulat ory Pharmac y influenza virus vaccine, split virus (incl. purified surface antigen)-reti red CODE 1 2005 [id number] 15 Sanofi Pasteur ([facility]) complet ed influenza virus vaccine, split virus (incl. purified surface antigen)- retired CODE [facility] typhoid vaccine, inactivated 2005 [id number] 101 sanofi pasteur complet ed typhoid vaccine, inactivat ed 02/16/06 Given Ambulat ory Pharmac y varicella virus vaccine 0 2005 21 () Not Given varicella virus vaccine [facility] typhoid vaccine, parenteral, other than acetone-kille d, dried 1 2005 [id number] 41 Sanofi Pasteur ([facility]) complet ed typhoid vaccine, parentera l, other than acetone-k illed, dried DoD influenza virus vaccine,split 2004 [id number] 15 sanofi pasteur complet ed influenza virus vaccine,s plit 04/06/05 Given Ambulat ory Pharmac y influenza virus vaccine, split virus (incl. purified surface antigen)-reti red CODE 1 2004 [id number] 15 Sanofi Pasteur ([facility]) complet ed influenza virus vaccine, split virus (incl. purified surface antigen)- retired CODE [facility] tetanus-dipht h toxoids (Td) adult/adol 2004 [id number] 09 sanofi pasteur complet ed tetanus-d iphth toxoids (Td) adult/ado l 09/15/04 Given Ambulat ory Pharmac y tetanus and diphtheria toxoids, adsorbed, preservative free, for adult use (2 Lf of tetanus toxoid and 2 Lf of diphtheria toxoid) 1 2004 [id number] 09 Sanofi Pasteur ([facility]) complet ed tetanus and diphtheri a toxoids, adsorbed, preservat drake free, for adult use (2 Lf of tetanus toxoid and 2 Lf of diphtheri a toxoid) [facility] influenza virus vaccine,split 2004 [id number] 15 sanofi pasteur complet ed influenza virus vaccine,s plit 06/23/04 Given Ambulat ory Pharmac y influenza virus vaccine, split virus (incl. purified surface antigen)-reti red CODE 0 2004 [id number] 15 Sanofi Pasteur ([facility]) complet ed influenza virus vaccine, split virus (incl. purified surface antigen)- retired CODE [facility] typhoid vaccine, inactivated 2003 [id number] 101 sanofi pasteur complet ed typhoid vaccine, inactivat ed 02/18/04 Given Ambulat ory Pharmac y typhoid vaccine, parenteral, other than acetone-kille d, dried 0 2003 [id number] 41 Sanofi Pasteur ([facility]) complet ed typhoid vaccine, parentera l, other than acetone-k illed, dried [facility] influenza virus vaccine, whole virus 2002 [id number] 16 [employer] complet ed influenza virus vaccine, whole virus 03/11/03 Given Ambulat ory Pharmac y influenza virus vaccine, whole virus 0 2002 [id number] 16 [employer] (PWJ) complet ed influenza virus vaccine, whole virus DoD tuberculin purified protein derivative 2002 [id number] 96 sanofi pasteur complet ed tuberculi n purified protein derivativ e 05/08/02 Given Ambulat ory Pharmac y typhoid vaccine, inactivated 2001 [id number] 101 sanofi pasteur complet ed typhoid vaccine, inactivat ed 03/03/02 Given Ambulat ory Pharmac y typhoid vaccine, parenteral, other than acetone-kille d, dried 0 2001 [id number] 41 Sanofi Pasteur ([facility]) complet ed typhoid vaccine, parentera l, other than acetone-k illed, dried DoD influenza virus vaccine, whole virus 2001 [id number] 16 sanofi pasteur complet ed influenza virus vaccine, whole virus 02/13/02 Given Ambulat ory Pharmac y influenza virus vaccine, whole virus 0 2001 [id number] 16 Sanofi Pasteur ([facility]) complet ed influenza virus vaccine, whole virus DoD tuberculin purified protein derivative 2001 [id number] 96 sanofi pasteur complet ed tuberculi n purified protein derivativ e 05/09/01 Given Ambulat ory Pharmac y influenza virus vaccine, whole virus 2000 [id number] 16 sanofi pasteur complet ed influenza virus vaccine, whole virus 04/04/01 Given Ambulat ory Pharmac y influenza virus vaccine, whole virus 0 2000 [id number] 16 Sanofi Pasteur ([facility]) complet ed influenza virus vaccine, whole virus DoD tuberculin purified protein derivative 1999 [id number] 96 [facility] complet ed tuberculi n purified protein derivativ e 04/05/00 Given Ambulat ory Pharmac y influenza virus vaccine, whole virus 1999 [id number] 16 [facility] complet ed influenza virus vaccine, whole virus 04/05/00 Given Ambulat ory Pharmac y influenza virus vaccine, whole virus 0 1999 [id number] 16 [facility] ([facility]) complet ed influenza virus vaccine, whole virus DoD yellow fever vaccine 1999 [id number] 37 sanofi pasteur complet ed yellow fever vaccine 10/06/99 Given Ambulat ory Pharmac y yellow fever vaccine 0 1999 [id number] 37 Sanofi Pasteur ([facility]) complet ed yellow fever vaccine DoD typhoid, parenteral, AKD 1998 53 complet ed typhoid, parentera l, AKD 04/16/99 Given Ambulat ory Pharmac y typhoid vaccine, parenteral, acetone-kille d, dried ([place] ) 2 1998 53 () complet ed typhoid vaccine, parentera l, acetone-k illed, dried ([place] ) DoD typhoid, parenteral, AKD 19986830 [id number] 53 [facility] complet ed typhoid, parentera l, AKD 04/08/99 Given Ambulat ory Pharmac y typhoid vaccine, parenteral, acetone-kille d, dried ([place] ) 1 [id number] 53 [facility] ([facility]) complet ed typhoid vaccine, parentera l, acetone-k illed, dried ([place] ) DoD influenza virus vaccine, whole virus 1998 [id number] 16 [facility] complet ed influenza virus vaccine, whole virus 01/14/99 Given Ambulat ory Pharmac y influenza virus vaccine, whole virus 0 1998 [id number] 16 [facility] influenza virus vaccine, whole virus DoD influenza virus vaccine, whole virus 19984075 [id number] 0 16 [facility] complet ed influenza virus vaccine, whole virus 09/19/98 Given Ambulat ory Pharmac y influenza virus vaccine, whole virus 0 19989907 [id number] 0 16 [facility] ed influenza virus vaccine, whole [...] (Td) adult/adol 1994 09 complet ed tetanus-d [facility] toxoids (Td) adult/ado l 09/19/94 Given [...] Prevention' s HIV diagnostic algorithm. Refer to [facility] Lab Guide for additional information : [email or web address] x Testing performed by Jennifer jackson [employer] EPILAB Miscellan eous Sendouts Repository Sample Received (11/05/23 2:41 PM) 11/04 N [employer] EP[facility] Encounters Combined list of: 1) Encounters [...] Disposition Source [employer](Opt ometry) OUTPATIENT [id number] rte CAMILA ELIZABETH 09/15 Released w/o Limitations [employer](O ptometr y) Theater Facility OUTPATIENT [id number] Theater Provider 08/04 Released w/o Limitations Theater Facilit [facility] [employer] [place] [place] [facility]PATIENT [id number] lower back pain pat back from deploym ent [phone] TL ROSENBERG 08/15 Released w/o Limitations [employer] [place] DICKEY [place] [place] [facility] [place] Theater Facility OUTPATIENT [id number] Theater Provider 08/13 Released w/o Limitations Theater Facilit y [employer] [place] DICKEY [place] [place]War rior Op Med Cln Tm A Ad) OUTPATIENT [id number] Low Back pain persist ent [phone] LUCIEN CRAWLEY 08/29 Released w/o Limitations [employer] [place] [place]W arrior Op Med Cln Tm A Ad) [employer] [place] [place]Chi ropractic [place] OUTPATIENT [id number] Low back pain RO CAI R 09/02 Released w/o Limitations [employer] [place] [place]C hiropra ctic[place] [employer] [place] [place]Chi [place]ractic [place] OUTPATIENT [id number] f/u low back RO CAI R 09/06 Released w/o Limitations [employer] [place] [place]C hiropra ctic[place] [employer] [place] [place]Chi [place]ractic [place] OUTPATIENT [id number] back pain RO CAI R 09/13 Released w/o Limitations [employer] [place] [place]C hiropra ctic[place] [employer] [place] [place]Chi [place]ic [place] OUTPATIENT [id number] back pain RO CAI R 09/18 Released w/o Limitations [employer] [place] [place]C hiropra ctic[place] [employer] [place] [place]Chi [place]ractic [place] OUTPATIENT [id number] back pain RO CAI R 09/25 Released w/o Limitations [employer] [place] [place]C hiropra ctic[place] [employer] [place] [place]Chi [place]practic [place] OUTPATIENT [id number] low back / RO CAI R 10/02 Released w/o Limitations [employer] [place] [place]C hiropra ctic[place] [employer] [place] [place]Chi [place]practic [place] OUTPATIENT [id number] back pai9n RO CAI R 10/14 Released w/o Limitations [employer] [place] [place]C hiropra ctic[place] [employer] [place] [place]Chi [place]practic [place] OUTPATIENT [id number] back pain RO CAI 11/11 Released w/o Limitations [address] [place] [address] [employer] [place] [place]C hiropra ctic[place] [address] [place] [address] [employer] [place] [place]Chi [place]practic [place] OUTPATIENT [id number] back pain RO CAI 11/28 Released w/o Limitations [address] [place] [address] [employer] [place] [place]C hiropra ctic[place] [address] [place] [address] [employer] ([facility] [place]) OUTPATIENT [id number] [employer] RADHA UPTON 11/30 Released w/o Limitations [address] [place] [address] [employer] [place] [place]O ldclini c[place] [id number]||2024-09-09 18:01:00|XR_ITS|ELZIMMILIZ|Imaging|[id number]|"XR chest 1V portable Ordering provider: Penelope Reynoso MD History: 54 years Male with . CVA protocol . Comparison: None. FINDINGS: MEDIASTINUM: The cardiac silhouette is not enlarged. LUNGS: No infiltrates, effusions or pneumothorax. OTHER: No free air under the diaphragm. IMPRESSION: No acute cardiopulmonary pathology. Reviewed, dictated and finalized at location A. IMPRESSION: No acute cardiopulmonary pathology. "
--- OUTSIDE RECORDS SUMMARY | 2024-09-09 17:50 | XMS_ITS | Clinical Summary ---
Author Organization [facility] Address [address] [place] [address] Care Team Providers Care Hall Monitor Name Role Phone Noel Jacob MD Primary Care Provider [phone] Source Comments [facility],non-owned Affiliates and Associated Physician Practices is amultiple site organization consisting of ambulatory clinics and hospital sitesin [place], [place], [place] and [place]. This disclosure is being madepursuant to the Care Everywhere program and may not contain all information available regarding this patient. Last updated 18.[facility] Allergies No known active allergies Medications * [...] on file Legal Sex Male 1:19 PM FRONT OFFICE REPRESENTATIVE Gender Identity Not on file Sexual Orientation Not on file Last Filed Vital Signs Vital Sign Reading Time Taken Comments Blood Pressure 124/67 05/02/2017 7:02 PM FRONT OFFICE REPRESENTATIVE Pulse 78 05/02/2017 7:02 PM FRONT OFFICE REPRESENTATIVE Temperature 36.8 C (98.2 F) 05/02/2017 7:02 PM FRONT OFFICE REPRESENTATIVE Respiratory Rate 20 05/02/2017 7:02 PM FRONT OFFICE REPRESENTATIVE Oxygen Saturation 98% 05/02/2017 7:02 PM FRONT OFFICE REPRESENTATIVE Inhaled Oxygen Concentration - - Weight 90.7 kg (200 lb) 05/02/2017 7:02 PM FRONT OFFICE REPRESENTATIVE Height 188 cm (6' 2 ) 05/02/2017 7:02 PM FRONT OFFICE REPRESENTATIVE Body Mass Index 25.68 05/02/2017 7:02 PM FRONT OFFICE REPRESENTATIVE Plan of Treatment Health Maintenance Due Date [...] patient's age to complete this topic Insurance [facility] Care Teams Hall Monitor Relationship Specialty Start Date End Date Noel Jacob MD [address] [place] [phone] PCP - General Family Medicine 05/02/17
[2024-09-09 18:05] LABS: Basophils Percent Auto 0.8 % (0.2-1.2); Eosinophils Absolute Auto 0.2 K/mm3 (0-0.3); Eosinophils Percent Auto 3.2 % (0-4.4); Hematocrit 42.9 % (42.0-52.0); Hemoglobin 14.3 g/dL (14.0-18.0); Immature Granulocyte Absolute 0.01 K/mm3 (0.00-0.031); Immature Granulocyte Percent A 0.2 % (0-0.5); Lymphocytes Absolute Auto 1.29 K/mm3 (0.9-3.2); Lymphocytes Percent Auto 25.4 % (18.3-44.2); Mean Corpuscular HGB Conc 33.3 g/dl (32-36); Mean Corpuscular Hemoglobin 31.9 pg (26-34); Mean Corpuscular Volume 95.8 fl (80-100); Mean Platelet Volume 10.1 fl (7.4-10.4); Monocytes Absolute Auto 0.7 K/mm3 (0.1-0.6); Monocytes Percent Auto 12.8 % (2.6-8.5); Neutrophils Absolute Auto 2.9 K/mm3 (1.3-6.7); Neutrophils Percent Auto 57.6 % (45.5-73.1); Platelet Count Result 217 k/mm3 (150-375); Red Blood Count 4.48 M/mm3 (4.6-6.20); Red Cell Distribution Width 12.6 % (11.5-14.5); White Blood Count 5.1 K/mm3 (4.5-10.0)
[2024-09-09 18:07] VITALS: BP 124/76; PULSE 64; RESP 20; O2SAT 97
[2024-09-09 18:10] LABS: Ethanol < 10 mg/dL (<10)
[2024-09-09 18:13] LABS: Glucose Point of Care 104 mg/dl (65-105)
[2024-09-09 18:13] LABS: INR 0.9; Partial Thromboplastin Time 24.2 Seconds (22.3-36.8); Prothrombin Time 12.6 Seconds (11.1-14.7)
[2024-09-09 18:15] LABS: Alanine Aminotransferase 32 U/L (6-50); Albumin Level 4.3 g/dL (3.5-5.1); Alkaline Phosphatase 60 U/L (38-126); Anion Gap 7 mmol/L (4-12); Aspartate Amino Transferase 34 U/L (17-59); Bilirubin,Total 0.3 mg/dL (0.2-1.3); Blood Urea Nitrogen 8 mg/dL (9-20); Carbon Dioxide 26 mmol/L (22-30); Chloride 106 mmol/L (98-107); Estimated CRCL calculation 116 ml/min; Estimated Glomerular Filt Rate > 60; Glucose 109 mg/dL (65-110); Potassium 4.8 mmol/L (3.4-5.0); Sodium 139 mmol/L (137-145)
[2024-09-09 18:27] LABS: Troponin I < 0.012 ng/mL (0.000-0.034)
[2024-09-09 18:37] LABS: Influenza A QL RT-PCR Negative (Negative); Influenza B QL RT-PCR Negative (Negative); RSV RNA, RT-PCR Negative (Negative); SARS-CoV-2 RNA PCR Negative (Negative)
[2024-09-09 19:24] VITALS: BP 110/95; PULSE 61; RESP 20; O2SAT 98
[2024-09-09] MEDS: KETOROLAC 15 MG/ML VIAL (*BKC) IV PUSH (21:30)
[2024-09-09] MEDS: METOCLOPRAMIDE HCL INJ 10 MG/2 ML VIAL IV PUSH (21:30)
[2024-09-09] MEDS: diphenhydrAMINE HCl INJ 50 MG/ML VIAL 25 MG IV PUSH (21:31)
[2024-09-09] MEDS: dexAMETHasone SOD PHOS INJ 10 MG/ML 1 ML VIAL IV PUSH (21:31)
[2024-09-09 22:35] VITALS: PULSE 61; RESP 16; O2SAT 97
== END 2024-09-09 22:35 | disposition home or self-care (01) ==
PROVIDERS: Emergency Medicine; Emergency Provider Registered Nurse; PCP Family Medicine
DX: R51.9 Headache, unspecified (principal); R53.1 Weakness; J34.89 Other specified disorders of nose and nasal sinuses; R46.89 Other symptoms and signs involving appearance and behavior; Z87.891 Personal history of nicotine dependence; R94.31 Abnormal electrocardiogram [ECG] [EKG]
CPT/HCPCS: 36415; 70496; 70498; 71045; 80053; 82077; 82948; 84443; 84484; 85025; 85610; 85730; 87637; 93005; 96374; 96375; 99284; J1100; J1200; J1885; J2765; Q9967